=== PATIENT | female | born 1970 | race Caucasian/White ===

== ENCOUNTER 2023-06-27 18:32 | Outpatient (REF) | payer OTHER, SELFPAY ==
--- NOTE | ~2023-06-27 | MR_ITS ---
EXAMINATION: MR BRAIN WITHOUT CONTRAST CLINICAL INFORMATION: Alzheimer Disease. COMPARISON: None available. TECHNIQUE: MRI of the brain was obtained using routine sequences without contrast. FINDINGS: No focal restricted diffusion is demonstrated to suggest acute or subacute cerebral ischemia. No evidence of acute or chronic hemorrhagic products on heme-sensitive imaging. Scattered and partially confluent periventricular, deep white matter, and brainstem T2 FLAIR hyperintensities consistent with moderate underlying microangiopathy. Proportional prominence of the ventricles and sulcal spaces without evidence of obstructive hydrocephalus. No abnormal mass effect. No midline shift. Normal appearance of the pituitary gland. Normal positioning of the cerebellar tonsils. Normal arterial and venous vascular flow voids are present. Normal, homogeneous marrow signal. Mild mucosal thickening of the paranasal sinuses. No signal abnormalities within the mastoids. MR/MR head/brain wo con IMPRESSION: 1. No acute intracranial abnormalities. 2. Moderate underlying microangiopathy and generalized cerebral volume loss.
== END 2023-06-27 18:33 | disposition home or self-care (01) ==
LOC: HO.MRI 18:32
PROVIDERS: Visit Provider Psychiatry & Neurology Neurology
DX: G30.9 Alzheimer's disease, unspecified (principal)
CPT/HCPCS: 70551

== ENCOUNTER 2025-02-27 16:14 | Outpatient (AMB) | payer OTHER, SELFPAY ==
--- NOTE | 2025-02-27 16:18 | A.OFFVIS_ITS ---
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 She could not afford the expenses involved with Leqembi and it was not considered. She is presenting for a follow-up visit for management of Alzheimer's disease. The patient is currently treated with donepezil and memantine and is considered relatively stable. The patient reports experiencing some urinary incontinence, which is managed with pads. The patient reports sleeping at least five hours per night. Due to the patient's condition, the patient is no longer able to drive and relies on family for transportation. Review of Systems Narrative - Constitutional: Reports a good appetite. - Genitourinary: Reports urinary incontinence requiring the use of pads. - Neurological: Reports sleeping at least five hours nightly. - Psychiatric: Reports a good mood. Physical Exam Neuro Other: Mental Status: Alert and oriented to person, place, and time. Normal attention. Normal spontaneous speech, fluency, and comprehension. Affect anxious. MOCA 28. Cranial Nerves: CN II: Visual kaur full to confrontation, visual acuity intact. CN III, IV, : Pupils equal, round, reactive to light and accommodation. Extraocular movements are normal. CN V: Facial sensation is normal. CN VII: Facial movements symmetrical. CN VIII: Hearing intact to bedside conversation is normal. CN IX, X: Palate elevates symmetrically. CN XI: Shoulder shrug and head turn symmetrical. CN XII: Tongue midline without atrophy or fasciculations. Gait and Station: No obvious gait abnormality. No ataxia or instability. Extrapyramidal: Full facial expressions and blinking. No rigidity. Movements are appropriate with no tremor or abnormality. Speech: Normal; no dysarthria or tremor. Assessment & Plan Assessment & Plan (1) Alzheimer dementia: Comment: MRI brain WO at [facility] in Jun 2023: Mod diff atrophy and mild to mod MVD MRI brain WWO at [facility] in 2020: mild diff atrophy, minimal MVD CT PET brain at [facility] in 2020: Consistent with Alzheimer disease . Code(s): G30.9 - Alzheimer's disease, unspecified; F02.80 - Dementia in other diseases classified elsewhere, unspecified severity, without behavioral disturbance, psychotic disturbance, mood disturbance, and anxiety Category: Medical Qualifiers: Alzheimer's disease onset: early onset Dementia severity: mild Dementia behavioral or psychological symptom: with anxiety Qualified Code(s): G30.0 - Alzheimer's disease with early onset; F02.A4 - Dementia in other diseases classified elsewhere, mild, with anxiety (2) Anxiety disorder: Code(s): F41.9 - Anxiety disorder, unspecified Category: Medical Qualifiers: Anxiety disorder type: due to known physiological condition Qualified Code(s): F06.4 - Anxiety disorder due to known physiological condition Plan Impression recommendations: 54 years old woman with Alzheimer dementia. She was relatively stable with memantine, donepezil, and Paxil. We again talked about possibility of monoclonal antibody type of treatment, which she could not do because of the expense of co-pay raise involved. I would tried to talked to medical wrapped to see if there was any solution. Part of the problem could be that even if I would be able to get medicine for her, associated brain MRIs required 400 dollar of co-pay, which they could not afford. Medications: New memantine (Namenda) 10 mg PO BID 180 tabs 1RF donepezil 10 mg PO BEDTIME 90 tabs 1RF paroxetine HCl 20 mg PO DAILY 90 tabs 1RF Coding Level of Care Code Est Pt Level 4 (70410) Diagnoses Mild early onset Alzheimer's dementia with anxiety G30.0; F02.A4 Alzheimer's disease onset: early onset Dementia severity: mild Dementia behavioral or psychological symptom: with anxiety Anxiety disorder due to known physiological condition F06.4 Anxiety disorder type: due to known physiological condition
--- OUTSIDE RECORDS SUMMARY | 2025-02-27 18:52 | XMS_ITS | Patient Health Record ---
Author Organization [facility] Address [address] [place] [id number] Care Team Providers Care Log Rafter Name Role Phone Gadiel Aquino [phone] Reason For Referral No Information Plan Of Treatment No Information
--- OUTSIDE RECORDS SUMMARY | 2025-02-27 18:52 | XMS_ITS | Clinical Summary ---
Author Organization [facility] Address [id number] [place] [id number] Care Team Providers Care Grease Monkey Name Role Phone Jerad Johnson MD Primary Care Provider Unavaila ble Medical History Medical History Date Comments Anxiety state, unspecified DX:An xiety state, unspecified Family History Relation Name Status Comments Aunt BREAST CANCER P OST MENOPAUSAL Brother 1 Alive Brother 2 Alive Father (Age 62) DEPRESSION , SMOKER,, SUICIDE Maternal Grandfather Alive CAD Maternal Grandmother HEPATIT IS, CIRRHOSIS Mother Alive CHOL, Paternal Grandfather ETOH Paternal Grandmother DIES AG E 94 Sister Alive Social History Tobacco Use Types Packs/Day Years Used Date Smoking Tobacco: Former Cigarettes 1 Q uit: 03/28/2006 Smokeless Tobacco: Never Alcohol Use Standard Drinks/Week Comments Yes 0 (1 standard drink = 0.6 oz pur e alcohol) Comments Unknown Sex and Gender Information Value Date Recorded Sex Assigned at Not on file Legal Sex Female 1:44 PM EST Gender Identity Not on file Sexual Orientation Not on file Obstetrics History Plan of Treatment Health Maintenance Due Date Last Done Comments Breast Cancer Screening 1968 Hepatitis B Vaccines (1 of 3 - 19+ 3-dose series) 10/04/1987 Cervical Cancer Screening: P ap Smear 1989 Pneumococcal Vaccine: 50+ Years (1 of 1 - PCV) 2018 Zoster Vaccines (1 of 2) 2018 DTaP,Tdap,and Td Vaccines (4 - Td or Tdap) 06/29/2020 06/29/2010, 01/08/2000, 11/25/1999 Depression Screening 03/28/2024 COVID-19 Vaccine (1 - 2024-2 6 season) 2024 Influenza Vaccine (#1) 2024 , 01/02/2007 RSV Immunization Adult Patients (1 - 1-dose 75+ series) 10/04/2043 HIB Vaccines Aged Out No longer eligi ble based on patient's age to complete this topic HPV Vaccines Aged Out No longer eligi ble based on patient's age to complete this topic Hepatitis A Vaccines Aged Out No long er eligible based on patient's age to complete this topic IPV Vaccines Aged Out No longer eligi ble based on patient's age to complete this topic MMR Vaccines Aged Out No longer eligi ble based on patient's age to complete this topic Meningococcal ACWY Vaccine Aged Out N o longer eligible based on patient's age to complete this topic Meningococcal B Vaccine Aged Out No l onger eligible based on patient's age to complete this topic RSV Immunization Patients Under 20 months Aged Out No longer eligible b ased on patient's age to complete this topic Varicella Vaccines Aged Out No longer eligible based on patient's age to complete this topic Care Teams Grease Monkey Relationship Specialty Start Date End Date Jerad Johnson MD PCP - General 07/20/1997
== END 2025-02-27 16:37 | disposition home or self-care (01) ==
LOC: HO.HSM 16:14
PROVIDERS: PCP Internal Medicine; Referring Provider Pediatrics; Visit Provider Psychiatry & Neurology Neurology
DX: G30.0 Alzheimer's disease with early onset (principal); F02.A4 Dementia in other diseases classified elsewhere, mild, with anxiety; F06.4 Anxiety disorder due to known physiological condition
CPT/HCPCS: 99214